=== PATIENT | male | born 1965 | race Caucasian/White ===

== ENCOUNTER 2016-09-25 07:50 | Emergency (ER) | payer SELFPAY ==
--- NOTE | 2016-09-25 08:43 | ER Document Report ---
HPI - HPI Pain Level: 1 Notes: Patient is a 42-year-old male who presents the ED complaining of the to his hands, arms, trunk, face 1 week that is been getting worse. Patient states that the rash is pruritic and is worse at nighttime. Patient is not aware of any exposure to new chemicals or allergens that he is aware of. Patient does work a lot with his hands and uses various chemicals, but states that he uses gloves every time. Patient states that he is used [id number] meds with minimal relief. He has not noticed any purulent discharge, streaks, or fever. Patient states that he had a similar episode like this in the past and it was diagnosed with scabies. Patient admits to smoking but denies any other illicit drug use. Denies any other recent illness or travel. Denies any headache, neck pain/stiffness, URI, sore throat, chest pain, palpitations, syncope, cough , shortness of breath, wheeze, dyspnea, abdominal pain, nausea/vomiting/diarrhea , dysuria, hematuria,numbness/tingling, muscle paralysis/weakness. - ROS Notes: REVIEW OF SYSTEMS: CONSTITUTIONAL : Denies fever, chills, or sweats. Denies recent illness. EENT: Denies eye, ear, throat, or mouth pain or symptoms. Denies nasal or sinus congestion or discharge. Denies throat, tongue, or mouth swelling or difficulty swallowing. CARDIOVASCULAR: Denies chest pain. Denies palpitations or racing or irregular heart beat. Denies ankle edema. RESPIRATORY: Denies cough, cold, or chest congestion. Denies shortness of breath, difficulty breathing, or wheezing. GASTROINTESTINAL: Denies abdominal pain or distention. Denies nausea, vomiting , or diarrhea. Denies blood in vomitus, stools, or per rectum. Denies black, tarry stools. Denies constipation. GENITOURINARY: Denies difficulty urinating, painful urination, burning, frequency, blood in urine, or discharge. MUSCULOSKELETAL: Denies back or neck pain or stiffness. Denies joint pain or swelling. SKIN: see hpi NEUROLOGICAL: Denies confusion or altered mental status. Denies passing out or loss of consciousness. Denies dizziness or lightheadedness. Denies headache. Denies weakness or paralysis or loss of use of either side. Denies problems with gait or speech. Denies sensory loss, numbness, or tingling. ALL OTHER SYSTEMS REVIEWED AND NEGATIVE. Dictation was performed using [employer] voice recognition software - DERM Skin Color: Normal Past Medical History - Social History Smoking Status: Current Every Day Smoker Family History: Reviewed & Not Pertinent Renal/ Medical History: Denies: Hx Peritoneal Dialysis Vertical Provider Document - CONSTITUTIONAL Agree With Documented VS: Yes Notes: PHYSICAL EXAMINATION: GENERAL: Well-appearing, well-nourished and in no acute distress. HEAD: Atraumatic, normocephalic. EYES: Pupils equal round and reactive to light, extraocular movements intact, sclera anicteric, conjunctiva are normal. ENT: EAC clear b/l. TM's intact b/l without erythema, fluid, or perforation. Nares patent and without discharge. oropharynx clear without exudates. No tonsilar hypertrophy or erythema. Moist mucous membranes. No sinus tenderness. NECK: Normal range of motion, supple without lymphadenopathy Low suspicion for any meningitis, sepsis, peritonsillar/pharyngeal abscess, respiratory compromise, Trent's, temporal arteritis, or other emergent systemic condition at this time. Patient is aware this condition can change from initial presentation and he needs to monitor symptoms closely. Conservative measures otherwise for symptoms. Call to schedule an appointment with a dentist for further evaluation and management. Recheck with your PCM this week as well. Return to the ED with any worsening/concerning symptoms otherwise as reviewed in discharge. Patient is in agreement. LUNGS: Breath sounds clear to auscultation bilaterally and equal. No wheezes rales or rhonchi. HEART: Regular rate and rhythm without murmurs, rubs, gallops. Musculoskeletal: FROM to passive/active. Strength 5+/5. Extremities: No cyanosis, clubbing, or edema b/l. Peripheral pulses 2+. Capillary refill less than 3 seconds. NEUROLOGICAL: Cranial nerves grossly intact. Normal speech, normal gait. Normal sensory, motor exams PSYCH: Normal mood, normal affect. SKIN: + excoriations on erythematous base with burrows noted. no streaks or purulent discharge. Non-tender. Lesions to the hands, arms b/l, chest, face. Is - INFECTION CONTROL TRAVEL OUTSIDE OF THE [place] IN LAST 30 DAYS: No - RESPIRATORY O2 Sat by Pulse Oximetry: 97 Course - Re-evaluation Re-evalutation: 09/25/16 08:41 Patient is an afebrile, well-hydrated, 50-year-old male who presents the ED with suspected scabies based on H&P. Vitals are stable. PE otherwise unremarkable. low suspicion/risk for any life-threatening rash or illness at this time. I will cover him with permethrin cream to use as directed. Scabies precautions reviewed. Conservative measures otherwise for symptoms as needed. Bacitracin for any open lesions to help prevent secondary bacterial infection. Recheck with your PCM this week. Consider consult with dermatology. Return to the ED with any worsening/concerning symptoms otherwise as reviewed discharge. Patient is in agreement. - Vital Signs Vital signs: Temp Pulse Resp BP Pulse Ox 98.9 F 85 16 164/106 H 97 09/25/16 07:53 09/25/16 07:53 09/25/16 07:53 09/25/16 07:53 09/25/16 07:53 Discharge - Discharge Clinical Impression: Scabies Condition: Stable Disposition: HOME, SELF-CARE Instructions: Scabies ([facility]) Additional Instructions: Scabies precautions as reviewed use medication as directed May use [id number] Benadryl/cortisone cream as needed for any itching after treatment Recheck with your PCM this week Consider consult with a handle and vent machine operator Return to the ED with any worsening symptoms and/or development of fever, headache, neck pain/stiffness, chest pain, palpitations, syncope, shortness of breath, trouble breathing, abdominal pain, n/v/d, blood in stool/urine, numbness /tingling, abscess, purulent discharge, red streaks, or other worsening symptoms that are concerning to you. Prescriptions: Permethrin [Elimite] 60 gm TP ONCE PRN #1 cream..g. PRN Reason: Forms: Elevated Blood Pressure, Smoking Cessation Education Referrals: DERMATOLOGY [Provider Group] - Follow up as needed
[2016-09-25 09:09] VITALS: BP 146/85
== END 2016-09-25 08:45 | disposition home or self-care (01) ==
LOC: ER 07:50
DX: B86 Scabies (principal); F17.200 Nicotine dependence, unspecified, uncomplicated
CPT/HCPCS: 99282